=== PATIENT | female | born 1980 | race American Indian/Alaskan Native ===

== ENCOUNTER 2018-12-12 23:37 | Emergency (ER) | payer MEDICAID ==
[2018-12-13] MEDS ORDERED: TYLENOL PO ONE (05:03)
[2018-12-13] MEDS ORDERED: IBUPROFEN PO ONE (05:03)
[2018-12-13] MEDS ORDERED: BACTRIM DS PO ONE (05:03)
--- NOTE | 2018-12-13 05:08 | Emergency Department Report ---
- General Chief complaint: Skin/Abscess/Foreign Body Stated complaint: RT LEG PAIN Time Seen by Provider: 12/13/18 04:50 Source: patient Mode of arrival: Ambulatory Limitations: No Limitations - History of Present Illness Initial comments: Patient is a 38-year-old -[place] female with no past medical history who presents to the ED with complaint of acute onset of persistent painful swelling mildly erythematous nonfluctuant rash on medial right upper thigh for the last 3 days. Patient denies fever, chills, nausea, vomiting, diarrhea, numbness and tingling of lower extremities bilaterally or traumatic injury. MD complaint: rash, insect bite/sting, abscess/boil -: Sudden, days(s) (3) Tetanus Up to Date: yes Location: RLE (medial right upper thigh) Severity: moderate Severity scale (0 -10): 5 Quality: aching, sharp Consistency: constant Improves with: none Worsens with: movement Context: none Associated symptoms: denies other symptoms Treatments Prior to Arrival: none - Related Data Previous Rx's Medication Instructions Recorded Last Taken Type HYDROcodone/APAP 5-325 [[place] 1 - 2 each PO Q6HR PRN #14 tablet 08/16/13 Unknown Rx 5/325 mg] Cyclopentolate 1% [Cyclogyl] 1 drops OP TID #1 bottle 04/24/16 Unknown Rx Ofloxacin [Ocuflox 0.3%] 1 - 2 drop OP Q30MIN #1 bottle 04/24/16 Unknown Rx Polyvinyl Alcohol [Artificial 15 ml OP TID #1 bottle 04/24/16 Unknown Rx Tears] Ibuprofen [Motrin 800 MG tab] 800 mg PO TID PRN #20 tablet 12/13/18 Unknown Rx Sulfamethoxazole/Trimethoprim 1 each PO Q12H #20 tablet 12/13/18 Unknown Rx [Bactrim DS TAB] Allergies Allergy/AdvReac Type Severity Reaction Status Date / Time No Known Allergies Allergy Verified 04/24/16 04:50 Abscess Boil HPI - HPI Chief Complaint: Skin/Abscess/Foreign Body Stated Complaint: RT LEG PAIN Time Seen by Provider: 12/13/18 04:50 Duration: 3 Days Location: Lower Extremity (right medial upper thigh) Severity: Moderate History: Yes Pain, No Fever, No Purulent Drainage, No Numbness, No Foreign Body, No Previous History, No Insect Bite HPI: Patient is a 38-year-old -[place] female with no past medical history who presents to the ED with complaint of acute onset of persistent painful swelling mildly erythematous nonfluctuant rash on medial right upper thigh for the last 3 days. Patient denies fever, chills, nausea, vomiting, diarrhea, numbness and tingling of lower extremities bilaterally or traumatic injury. Home Medications: Previous Rx's Medication Instructions Recorded Last Taken Type HYDROcodone/APAP 5-325 [[place] 1 - 2 each PO Q6HR PRN #14 tablet 08/16/13 Unknown Rx 5/325 mg] Cyclopentolate 1% [Cyclogyl] 1 drops OP TID #1 bottle 04/24/16 Unknown Rx Ofloxacin [Ocuflox 0.3%] 1 - 2 drop OP Q30MIN #1 bottle 04/24/16 Unknown Rx Polyvinyl Alcohol [Artificial 15 ml OP TID #1 bottle 04/24/16 Unknown Rx Tears] Ibuprofen [Motrin 800 MG tab] 800 mg PO TID PRN #20 tablet 12/13/18 Unknown Rx Sulfamethoxazole/Trimethoprim 1 each PO Q12H #20 tablet 12/13/18 Unknown Rx [Bactrim DS TAB] Allergies/Adverse Reactions: Allergies Allergy/AdvReac Type Severity Reaction Status Date / Time No Known Allergies Allergy Verified 04/24/16 04:50 ED Review of Systems ROS: Stated complaint: RT LEG PAIN Other details as noted in HPI Comment: All other systems reviewed and negative Constitutional: denies: chills, fever Eyes: denies: eye pain, eye discharge, vision change ENT: denies: ear pain, throat pain Respiratory: denies: cough, shortness of breath, wheezing Cardiovascular: denies: chest pain, palpitations Endocrine: no symptoms reported Gastrointestinal: denies: abdominal pain, nausea, diarrhea Genitourinary: denies: urgency, dysuria, discharge Musculoskeletal: arthralgia, other (right upper medial th monitorigh). denies: back pain, joint swelling Skin: rash, change in color (mildly erythematous is rash). denies: lesions Neurological: denies: headache, weakness, paresthesias Psychiatric: denies: anxiety, depression Hematological/Lymphatic: denies: easy bleeding, easy bruising ED Past Medical Hx - Past Medical History Previous Medical History?: Yes Hx Arthritis: Yes - Surgical History Past Surgical History?: No - Social History Smoking Status: Current Every Day Smoker Substance Use Type: None - Medications Home Medications: Home Medications Medication Instructions Recorded Confirmed Last Taken Type HYDROcodone/APAP 5-325 [[place] 1 - 2 each PO Q6HR PRN #14 tablet 08/16/13 Unknown Rx 5/325 mg] Cyclopentolate 1% [Cyclogyl] 1 drops OP TID #1 bottle 04/24/16 Unknown Rx Ofloxacin [Ocuflox 0.3%] 1 - 2 drop OP Q30MIN #1 bottle 04/24/16 Unknown Rx Polyvinyl Alcohol [Artificial 15 ml OP TID #1 bottle 04/24/16 Unknown Rx Tears] Ibuprofen [Motrin 800 MG tab] 800 mg PO TID PRN #20 tablet 12/13/18 Unknown Rx Sulfamethoxazole/Trimethoprim 1 each PO Q12H #20 tablet 12/13/18 Unknown Rx [Bactrim DS TAB] ED Physical Exam - General Limitations: No Limitations General appearance: alert, in no apparent distress - Head Head exam: Present: atraumatic, normocephalic, normal inspection - Eye Eye exam: Present: normal appearance, PERRL, EOMI. Absent: scleral icterus, conjunctival injection, periorbital swelling, periorbital tenderness - ENT ENT exam: Present: normal exam, normal orophraynx, mucous membranes moist, TM's normal bilaterally, normal external ear exam - Neck Neck exam: Present: normal inspection, full ROM. Absent: tenderness - Respiratory Respiratory exam: Present: normal lung sounds bilaterally. Absent: respiratory distress, wheezes, rales, rhonchi, chest wall tenderness, accessory muscle use, decreased breath sounds, prolonged expiratory - Cardiovascular Cardiovascular Exam: Present: regular rate, normal rhythm, normal heart sounds. Absent: systolic murmur, diastolic murmur, rubs, gallop - GI/Abdominal GI/Abdominal exam: Present: soft, normal bowel sounds. Absent: hyperactive bowel sounds, hypoactive bowel sounds - Rectal Rectal exam: Present: deferred - Extremities Exam Extremities exam: Present: normal inspection, tenderness (right upper medial thigh due to swollen rash), normal capillary refill - Back Exam Back exam: Present: normal inspection, full ROM. Absent: CVA tenderness (R), CVA tenderness (L), muscle spasm, paraspinal tenderness - Neurological Exam Neurological exam: Present: alert, oriented X3, CN II-XII intact, normal gait - Psychiatric Psychiatric exam: Present: normal affect, normal mood - Skin Skin exam: Present: warm, dry, intact, rash (erythematous nonfluctuant rash in right medial upper thigh) ED Course Vital Signs 12/13/18 00:01 Temperature 97.8 F Pulse Rate 71 Respiratory 18 Rate Blood Pressure 138/98 [Right] O2 Sat by Pulse 100 Oximetry - Reevaluation(s) Reevaluation #1: 12/13/18 05:09 Patient is alert and oriented 3 and is not in distress. Patient was treated for pain in the ED and also given initial dose of antibiotics. Rosa Isela discharged home on antibiotics and pain medications and advised to follow-up with her primary care physician in 7-10 days for reevaluation or return to the ED immediately if symptoms get worse. ED Medical Decision Making - Medical Decision Making Patient is alert and oriented 3 and is not in distress. Patient was treated for pain in the ED and also given initial dose of antibiotics. Rosa Isela discharged home on antibiotics and pain medications and advised to follow-up with her primary care physician in 7-10 days for reevaluation or return to the ED immediately if symptoms get worse. - Differential Diagnosis cellulitis of right thigh; cutaneous abscess of right thigh, folliculitis Critical care attestation.: If time is entered above; I have spent that time in minutes in the direct care of this critically ill patient, excluding procedure time. ED Disposition Clinical Impression: Acute folliculitis, Cellulitis of right thigh Disposition: DC-01 TO HOME OR SELFCARE Is pt being admited?: No Does the pt Need Aspirin: No Condition: Stable Instructions: Cellulitis (ED), Folliculitis (ED) Additional Instructions: Take medications with food, drink plenty of fluids and follow up with your Primary Care physician in 7-10 days for reevaluation. Return to the ED immediately if symptoms get worse. Prescriptions: Sulfamethoxazole/Trimethoprim [Bactrim DS TAB] 1 each PO Q12H #20 tablet Ibuprofen [Motrin 800 MG tab] 800 mg PO TID PRN #20 tablet PRN Reason: Pain Referrals: DEIDRA WHITE DO [Primary Care Provider] - 3-5 Days Forms: Work/School Release Form(ED) Time of Disposition: 05:13 Print Language: CYMRAES
[2018-12-13 05:42] VITALS: BP 122/66
== END 2018-12-13 05:48 | disposition home or self-care (01) ==
LOC: ED 23:37
DX: L73.9 Follicular disorder, unspecified (principal); L03.115 Cellulitis of right lower limb; M19.90 Unspecified osteoarthritis, unspecified site; F17.200 Nicotine dependence, unspecified, uncomplicated; Z79.899 Other long term (current) drug therapy
CPT/HCPCS: 99282

== ENCOUNTER 2020-05-02 13:07 | Emergency (ER) | payer SELFPAY ==
[2020-05-02 13:34] VITALS: BP 153/95
--- NOTE | 2020-05-02 13:44 | Emergency Department Report ---
Blank Doc - Documentation Documentation: 39-year-old female that presents with vaginal bleeding x several days. Patient stated has missed her menstrual cycle for 2 months and now has clots. Denies knowing status. This initial assessment/diagnostic orders/clinical plan/treatment(s) is/are subject to change based on patient's health status, clinical progression and re- assessment by fellow clinical providers in the ED. Further treatment and workup at subsequent clinical providers discretion. Patient/guardians urged not to elope from the ED as their condition may be serious if not clinically assessed and managed. Initial orders include: 1- Patient sent to [facility] for further evaluation and treatment 2- labs 3- UA
[2020-05-02 14:24] LABS: Basophils % (Auto) 0.3 % (0.0-1.8); Eosinophils # (Auto) 0.1 K/mm3 (0.0-0.4); Eosinophils % (Auto) 1.4 % (0.0-4.3); Hematocrit 35.6 % (30.3-42.9); Hemoglobin 12.4 gm/dl (10.1-14.3); Lymphocytes # (Auto) 3.1 K/mm3 (1.2-5.4); Lymphocytes % (Auto) 35.7 % (13.4-35.0); Mean Corpuscular HGB Conc 35 % (30-34); Mean Corpuscular Volume 89 fl (79-97); Monocytes # (Auto) 0.8 K/mm3 (0.0-0.8); Platelet Count 351 K/mm3 (140-440)
[2020-05-02 14:38] LABS: Blood Urea Nitrogen 12 mg/dL (7-17); Calcium 9.2 mg/dL (8.4-10.2); Hemolysis Index 7
[2020-05-02 14:40] LABS: BUN/Creatinine Ratio 17
[2020-05-02 15:20] LABS: Bacteria,Urine 1+ /HPF (Negative); Bilirubin,Urine NEG (Negative); Blood,Urine LG (Negative); Color,Urine Yellow (Yellow); Mucus,Urine FEW /HPF; Urobilinogen,Urine < 2.0 mg/dL (<2.0)
--- NOTE | 2020-05-02 16:00 | Emergency Department Report ---
ED General Adult HPI - General Chief complaint: Vaginal Bleeding Stated complaint: BLEEDING Time Seen by Provider: 05/02/20 13:33 Source: patient Mode of arrival: Ambulatory Limitations: No Limitations - History of Present Illness Initial comments: This is a 39-year-old female presenting with chief complaint of vaginal bleeding, gradual onset 2 weeks ago. She states that she missed her previous 2 cycles and then began to bleed 14 days ago however has been persistent soaking through several pads every day. She reports a slight pelvic cramping but denies any significant pain, vaginal discharge, dysuria, fever. Symptoms are moderate in nature, no alleviating or exacerbating factors. She states that she did call to make an appoint with her doctor but she cannot be seen until May 15. - Related Data Previous Rx's Medication Instructions Recorded Last Taken Type HYDROcodone/APAP 5-325 [[place] 1 - 2 each PO Q6HR PRN #14 tablet 08/16/13 Unknown Rx 5/325 mg] Cyclopentolate 1% [Cyclogyl] 1 drops OP TID #1 bottle 04/24/16 Unknown Rx Ofloxacin [Ocuflox 0.3%] 1 - 2 drop OP Q30MIN #1 bottle 04/24/16 Unknown Rx Polyvinyl Alcohol [Artificial 15 ml OP TID #1 bottle 04/24/16 Unknown Rx Tears] Ibuprofen [Motrin 800 MG tab] 800 mg PO TID PRN #20 tablet 12/13/18 Unknown Rx Sulfamethoxazole/Trimethoprim 1 each PO Q12H #20 tablet 12/13/18 Unknown Rx [Bactrim DS TAB] medroxyPROGESTERone ACETATE 10 mg PO DAILY #7 tablet 05/02/20 Unknown Rx [Medroxyprogesterone Acetate] Allergies Allergy/AdvReac Type Severity Reaction Status Date / Time No Known Allergies Allergy Verified 04/24/16 04:50 ED Review of Systems ROS: Stated complaint: BLEEDING Other details as noted in HPI Comment: All other systems reviewed and negative Genitourinary: as per HPI ED Past Medical Hx - Past Medical History Hx Arthritis: Yes - Social History Smoking Status: Current Every Day Smoker Substance Use Type: None - Medications Home Medications: Home Medications Medication Instructions Recorded Confirmed Last Taken Type HYDROcodone/APAP 5-325 [[place] 1 - 2 each PO Q6HR PRN #14 tablet 08/16/13 Unknown Rx 5/325 mg] Cyclopentolate 1% [Cyclogyl] 1 drops OP TID #1 bottle 04/24/16 Unknown Rx Ofloxacin [Ocuflox 0.3%] 1 - 2 drop OP Q30MIN #1 bottle 04/24/16 Unknown Rx Polyvinyl Alcohol [Artificial 15 ml OP TID #1 bottle 04/24/16 Unknown Rx Tears] Ibuprofen [Motrin 800 MG tab] 800 mg PO TID PRN #20 tablet 12/13/18 Unknown Rx Sulfamethoxazole/Trimethoprim 1 each PO Q12H #20 tablet 12/13/18 Unknown Rx [Bactrim DS TAB] medroxyPROGESTERone ACETATE 10 mg PO DAILY #7 tablet 05/02/20 Unknown Rx [Medroxyprogesterone Acetate] ED Physical Exam - General Limitations: No Limitations General appearance: alert, in no apparent distress - Head Head exam: Present: atraumatic, normocephalic - Eye Eye exam: Present: normal appearance - ENT ENT exam: Present: mucous membranes moist - Neck Neck exam: Present: normal inspection - Respiratory Respiratory exam: Present: normal lung sounds bilaterally. Absent: respiratory distress - Cardiovascular Cardiovascular Exam: Present: regular rate, normal rhythm. Absent: systolic murmur, diastolic murmur, rubs, gallop - GI/Abdominal GI/Abdominal exam: Present: soft, normal bowel sounds. Absent: distended, tenderness, guarding, rebound - Extremities Exam Extremities exam: Present: normal inspection - Back Exam Back exam: Present: normal inspection - Neurological Exam Neurological exam: Present: alert, oriented X3 - Psychiatric Psychiatric exam: Present: normal affect, normal mood - Skin Skin exam: Present: warm, dry, intact, normal color. Absent: rash ED Course Vital Signs 05/02/20 13:28 Temperature 98.5 F Pulse Rate 80 Respiratory 18 Rate Blood Pressure 153/95 O2 Sat by Pulse 98 Oximetry ED Medical Decision Making - Lab Data Result diagrams: 05/02/20 13:57 05/02/20 13:57 - Medical Decision Making 39-year-old female presenting with 2-week history of vaginal bleeding, after missing 2 previous cycles. She denies any significant pain. Her examination is normal. We will check labs. Hemoglobin is stable, hCG is negative. Gave patient option of progesterone versus watchful waiting until [employer] INVESTMENT ANA[employer] follow-up and she would prefer progesterone. Advised on keeping her outpatient follow-up and returning here if anything worsens. Imaging was deferred today. - Differential Diagnosis Dysfunctional uterine bleeding, fibroid, malignancy Critical care attestation.: If time is entered above; I have spent that time in minutes in the direct care of this critically ill patient, excluding procedure time. ED Disposition Clinical Impression: Dysfunctional uterine bleeding Disposition: TO HOME OR SELFCARE Is pt being admited?: No Condition: Stable Instructions: Abnormal Uterine Bleeding Prescriptions: medroxyPROGESTERone ACETATE [Medroxyprogesterone Acetate] 10 mg PO DAILY #7 tablet Referrals: DEIDRA WHITE [Primary Care Provider] - 3-5 Days Time of Disposition: 16:00
== END 2020-05-02 16:42 | disposition home or self-care (01) ==
LOC: ED 13:07
DX: N93.8 Other specified abnormal uterine and vaginal bleeding (principal); M19.90 Unspecified osteoarthritis, unspecified site; F17.200 Nicotine dependence, unspecified, uncomplicated; Z79.899 Other long term (current) drug therapy
CPT/HCPCS: 36415; 80048; 81001; 84702; 85025; 99283